=== PATIENT | male | born 1975 | race Caucasian/White ===

== ENCOUNTER 2017-09-04 10:08 | Emergency (ER) | payer BC ==
--- NOTE | 2017-09-04 10:44 | ERNOTE ---
Upper Extremity HPI - Narrative Date of Service: 09/04/17 - General Extremities Pain Location: arm: right Time Seen by Provider: 09/04/17 10:42 Source: patient, RN notes reviewed Exam Limitations: no limitations - Immun/Allergies/Home Medications Immunizations: IMMUNIZATION HX Immunizations Up to Date Yes History of Influenza Vaccine No Hx Pneumococcal Vaccination No Allergies/Adverse Reactions: Allergies Allergy/AdvReac Type Severity Reaction Status Date / Time codeine Allergy Severe Anaphylaxis Verified 09/04/17 10:26 Penicillins Allergy Unknown Other Verified 09/04/17 10:26 Home Medications: HOME MEDICATIONS Mesalamine [Asacol] 1,600 mg PO TID 06/15/14 [Last Taken 08/06/14] ALPRAZolam [Xanax] 0.5 mg PO BID PRN 03/06/16 [Last Taken Unknown] Cyclobenzaprine HCl [Flexeril] 10 mg PO TID PRN #30 tab 03/06/16 [Last Taken Unknown] Omeprazole [Prilosec] 40 mg PO DAILY 03/06/16 [Last Taken Unknown] azaTHIOprine [Imuran] 250 mg PO 03/06/16 [Last Taken Unknown] oxyCODONE HCL/ACETAMINOPHEN [Oxycodone-Acetaminophen 5-325] 1 - 2 each PO Q6H PRN #20 tablet 09/04/17 [Last Taken Unknown] - History of Present Illness Narrative: 42 year old male brought to the ED by his for an injury due to a fall. He was getting out of his truck in their garage while wearing wet flip flops and slipped, causing him to fall. He landed on his right upper arm and now has severe pain. He reports having problems with his bicep in the past. He denies pain in the shoulder and elbow joints. He is also currently being treated for pneumonia. Date (Duration): 09/04/17 Time (Timing): 08:15 Location of Incident: home Method of Injury: Reports: fell Reason for Fall: Reports: slipped Loss of Consciousness: Reports: no loss of consciousness Modifying Factors - (Improves): Reports: immobilization, rest Modifying Factors - (Worsens): Reports: movement Associated Symptoms: Denies: tingling, weakness, numbness distally, loss of power (rt arm) Other Injuries: Reports: none Prior Treament: Reports: recently seen, treated by physician, currently on antibiotics Review of Systems - Review of Systems Constitutional: Present: recent illness, fever, fatigue, malaise EYE: Present: no symptoms reported ENT: Present: no symptoms reported Respiratory: Present: cough. Absent: shortness of breath Cardiology: Absent: chest pain, syncope Gastrointestinal/Abdominal: Absent: nausea, vomiting, abdominal pain Genitourinary: Present: no symptoms reported Musculoskeletal: Present: muscle pain. Absent: neck pain, joint pain, joint swelling Skin: Absent: rash, lesions, lumps, change in color Neurological: Present: See HPI Endocrine: Present: no symptoms reported Hematologic/Lymphatic: Absent: easy bruising, easy bleeding Psych: Present: no symptoms reported - Patient's Past Medical History Patient History - Medical: Other Patient History - Cardiac/Respiratory: Sleep Apnea Patient History - Cancer: No Hx of Cancer Patient History - Surgical Procedures: Noncontributory, Other Patient History - Other: Other - Family History Mother Family History - Medical: Father Family History - Cardiac/Respiratory: Coronary Heart Disease, Hypertension, Myocardial Infarction Family History - Cancer: Esophageal, Lung, Throat - Social History Living Situations: spouse Abuse History: No History of abuse Psych History: No pertinent hx Smoking Status: Never smoker Have you smoked in the past 12 months: No Do you dip or chew tobacco: No Alcohol Use: none Drug Use: none - Immunizations Immunizations Up to Date: Yes Hx Pneumococcal Vaccination: No History of Influenza Vaccine: No Physical Exam - Physical Exam General Appearance: Present: wd/wn, alert, mild distress, other - Appears uncomfortable, holding right arm flexed against his torso Head Exam: Present: normal inspection, no evidence of injury Respiratory: Present: no respiratory distress, no accessory muscle use Extremity Exam: Present: no edema, decreased range of motion - Right arm, d/t pain, other - Tenderness over right bicep region. Absent: bony tenderness, joint swelling Neurological Exam: Present: alert, oriented, normal mood/affect, no motor/ sensory deficits Skin Exam: Present: normal color, warm/dry ED Progress - Vital Signs Patient's Vital Signs:: I have reviewed the patient's vital signs. Vital Signs: Vital Signs 09/04/17 10:21 Temperature 36.8 C Pulse Rate 85 Respiratory 18 Rate Blood Pressure 153/90 O2 Sat by Pulse 93 Oximetry - X-Ray X-Ray #1 X-Ray: humerus - Right Interpretation: Reviewed by me X-ray Comments: No acute osseous abnormality noted - Progress/Reassessment Chief Complaint: Upper Extremity Injury/Problem Progress:: Improved Departure Clinical Impression: Biceps muscle strain Qualifiers: Encounter type: initial encounter Laterality: right Qualified Code(s): S46.211A - Strain of muscle, fascia and tendon of other parts of biceps, right arm, initial encounter - Departure Disposition: Home Follow Up Needed Condition: Stable Instructions: Muscle Strain, [id number], Form - Excuse from Work, School, or Physical Activity Additional Instructions: Wear YECENIA wrap for compression Ice, elevate Tylenol for mild pain, Percocet for severe pain - may cause constipation, nausea , drowsiness Contact orthopedics for follow-up if your symptoms are not improving by the beginning of the week Referrals: Lily Schmitz MD [Primary Care Provider] - Prescriptions: oxyCODONE HCL/ACETAMINOPHEN [Oxycodone-Acetaminophen 5-325] 1 - 2 each PO Q6H PRN #20 tablet PRN Reason: Pain
[2017-09-04] MEDS ORDERED: KETOROLAC TROMETHAMINE 60 MG/2 ML VIAL IM ONE ×2 (10:49→10:51)
[2017-09-04 11:47] VITALS: BP 131/73
== END 2017-09-04 11:40 | disposition home or self-care (01) ==
LOC: ER 10:08
DX: S46.211A Strain of muscle, fascia and tendon of other parts of biceps, right arm, initial encounter (principal); W17.89XA Other fall from one level to another, initial encounter; Y93.9 Activity, unspecified; Y92.009 Unspecified place in unspecified non-institutional (private) residence as the place of occurrence of the external cause